=== PATIENT | male | born 1970 | race Caucasian/White ===

== ENCOUNTER 2024-10-28 13:18 | Inpatient (IN) | payer BC ==
[~2024-10-28] VITALS: Ht 190.5 cm; Wt 127.3 kg
[2024-10-28] VITALS (12 sets, daily range): BP systolic 143–168; BP diastolic 76–105; PULSE 64–87; RESP 15–19; TEMP 97.2–97.7; O2SAT 96–100
[2024-10-28] MEDS: HEPARIN DRIP INITAL BOLUS --- DO NOT GIVE/ORDER MC ONE (13:39)
[2024-10-28] MEDS: HEPARIN DRIP-CARDIAC**PHARMACIST-TO-DOSE IV ONE (13:39)
[2024-10-28 13:40] LABS: MEAN PLATELET VOLUME 7.8 FL (7.4-10.4); RED CELL DISTRIBUTION WIDTH 13.8 % (11.5-14.5)
--- NOTE | 2024-10-28 13:41 | Physician Documentation ---
History of Present Illness ~ Chief Complaint: Chest Pain Stated Complaint: NSTEMI Time Seen by MD: 13:24 Source: patient, EMS, EMS notes reviewed, old records Mode of Arrival: EMS Exam Limitations: no limitations HPI Chief Complaint: Chest pain Caveat: None Independent Historians: Paramedics History of Present Illness: Patient is a 54-year-old man complaining of chest pain that has been intermittent for a week and a half and then became severe last evening around 11:00 p.m.. Patient went to [facility] emergency department earlier this morning and was found to have elevated troponin and severe hypertension. He is placed on nitro drip, heparin drip and given aspirin. Patient continues to have chest pain five to 7/10 over the left side of the chest. No alleviating or exacerbating factors. Patient was transferred here from [facility] emergency department via paramedics. Review of systems: All systems were reviewed and are negative except for what is indicated in the history of present illness. Past Medical History: HLD Past Surgical History: None Social History: No tobacco use, no alcohol use, no drug use Medications: Reviewed as documented Nursing Notes Allergies: Reviewed as documented in Nursing Notes Medication Reconciliation Allergies: Coded Allergies: No Known Allergies (Unverified , 10/28/24) Review of Systems All Other Systems at this time: Reviewed and Negative ROS Patient denies any other acute symptoms other than above. All other systems are negative Physical Exam Vital Signs: RN Vital Signs have been reviewed: Yes, Heart Rate: 66, Respiratory Rate: 13, BP: 147/94, Pulse Oximetry: 99, Weight: 127.270 Oxygen Flow Rate: 0 Pulse Oximetry Reflects: adequate oxygenation Physical Exam General Appearance: Mild distress HEENT: Normal OP, moist oral mucosa, PERRL, EOMI Neck: supple, normal ROM, trachea midline Pulmonary: No respiratory distress, CTA, BS equal Cardiac: RRR, no murmur, rub or gallop, GI: nondistended, soft, nontender, normal bowel sounds, no guarding, no rebound Extremities: normal ROM, no swelling, non-tender Skin: intact, dry, warm, no rashes Neuro: AAOx3, speech is clear, no focal motor weakness Psych: normal affect, good eye contact, no apparent hallucination, normal speech Progress Results/Orders Results/Orders Orders - RIAZ HALL MD Chest,Single View (10/28/24 13:27) Saline Lock (10/28/24 13:27) Monitor (10/28/24 13:) Oxygen (10/28/24 13:) Hs Troponin I W Calculations (10/28/24 15:27) Hs Troponin I W Calculations (10/28/24 16:27) Heparin 25,000 Unit/250ml Bag (Heparin 2 (10/28/24 13:35) Heparin 10,000 Unit/Ml 1ml (Heparin 10,0 (10/28/24:35) Nitroglycerin-Tridil 50mg/D5w (Tridil (N (10/28/24 13:35) Electrocardiogram (10/28/24 14:12) Page Hospitalist (10/28/24 14:13) Fill Out Med Reconciliation (10/28/24 14:13) Electrocardiogram (10/28/24 14:14) Completed Orders - RIAZ HALL MD Cbc/Diff (10/28/24:) MG (10/28/24:) Electrocardiogram (10/28/24 13:27) PBNP (10/28/24 13:27) Chest,Single View (10/28/24:) BMP (10/28/24 13:27) Hs Troponin I W Calculations (10/28/24:) Heparin Drip Acs*Rph-To-Dose* (Heparin D (10/28/24 13:30) No Initial Heparin Drip Bolus (No Initia (10/28/24 13:35) Cardiac Ptt (10/28/24 14:13) Fentanyl/Pf (Fentanyl 0.05 Mg/Ml Syringe (10/28/24 14:15) Pt Inr (10/28/24 14:13) Message To Nursing (10/28/24 14:20) Medications Received in ER Medications (Trade) Dose Ordered Sig/Gulshan Route PRN Reason Start Time Stop Time Status Last Admin Dose Admin (Heparin Drip - Cardiac - Pharmacist To Dose) 1 ea ONCE ONCE IV 10/28/24 13:30 10/28/24 13:31 DC 10/28/24 13:39 1 EA Heparin Sodium/ Dextrose 250 ml @ 10 mls/hr Q25H PRN IV TO MAINTAIN PTT WITHIN RANGE 10/28/24 13:35 10/28/24 13:58 10 MLS/HR Nitroglycerin/ Dextrose 250 ml @ 1.5 mls/hr Q48H PRN IV TO MAINTAIN MEAN MAP OF 65 10/28/24 13:35 10/28/24 14:07 12 MLS/HR Vital Signs 10/28/24 10/28/24 10/28/24 13:23 13:47 14:07 Pulse 66 Resp 13 13 B/P (MAP) 147/94 166/110 Pulse Ox 99 O2 Flow Rate 0 Laboratory Tests Test 10/28/24 13:30 White Blood Count 11.9 H Red Blood Count 5.07 Hemoglobin 16.2 Hematocrit 47.9 Mean Corpuscular Volume 94.4 Mean Corpuscular Hemoglobin 31.9 H Mean Corpuscular Hemoglobin Concent 33.8 Red Cell Distribution Width 13.8 Platelet Count 194 Mean Platelet Volume 7.8 Neutrophils (%) (Auto) 65.6 Lymphocytes (%) (Auto) 26.1 Monocytes (%) (Auto) 6.0 Eosinophils (%) (Auto) 1.7 Basophils (%) (Auto) 0.6 Neutrophils # (Auto) 7.8 H Lymphocytes # (Auto) 3.1 Monocytes # (Auto) 0.7 Eosinophils # (Auto) 0.2 Basophils # (Auto) 0.1 CBC Comment Prothrombin Time 10.4 INR International Normalized Ratio 1.0 APTT (Heparin Protocol) 31 L Coagulation Comments Sodium Level 138 Potassium Level 4.3 Chloride Level 105 Carbon Dioxide Level 24.1 Anion Gap 9 Blood Urea Nitrogen 12 Creatinine 0.99 Estimated GFR/1.73 m2 79 BUN/Creatinine Ratio 12.1 Glucose Level 118 H Calcium Level 9.2 Magnesium Level 2.1 Troponin I High Sensitivity 3755 *H Pro-B-Type Natriuretic Peptide 1644 H Albumin 3.9 Chemistry Comments Medical Decision Making Findings Differential diagnosis includes but is not limited to: Acute coronary syndrome, pulmonary embolus, myocarditis, pericarditis EKG independent interpretation: Performed at 1:30 p.m.. Normal sinus rhythm, heart rate 69, leftward axis, subtle ST-depression in leads two, AVF and V4 through V6 EKG independent interpretation: Performed at 2:16 p.m.. Normal sinus rhythm, heart rate 62, leftward axis Q-wave in three and V1. Very subtle minimal ST- depression in two, AVF and V4 through V6 Chest x-ray, single view, indication: Chest pain Independent interpretation: Mild cardiomegaly, mild pulmonary vascular congestion, normal mediastinum. Laboratory data independent interpretation: CBC: Mild leukocytosis of 11.9, otherwise unremarkable CMP: Unremarkable, serum glucose 118 Pro BNP: 1644 1st troponin: 3755 2nd troponin: Urinalysis: Emergency department course/medical decision-making: Presents with ongoing chest pain and elevated troponins. Patient's 1st troponin earlier this morning at [facility] child was 445 and increased to 1684. Now the patient's troponin is higher than that at 3755. Patient is given fentanyl for his chest pain. Patient has continued heparin drip and nitro drip. Vital signs have been stable. Recommend patient be admitted and a heart catheterization. We will discuss with Dr. Quintana. Test results and treatment plan reviewed with the patient. 2:12 p.m.: Troponin result received and is continuing to increase. Patient is having ongoing chest pain. Dr. Quintana on-call Cardiology will be called immediately. Consultation/communications: 2:18 p.m.: Case discussed with claire Quintana's nurse in the general laborer. This information will be relayed to Dr. Quintana and he will evaluate the patient is soon as he is done with the current patient in the general laborer. 2:40 p.m.: Case discussed with the resident hospitalist. She will evaluate the patient for admission. Departure Time of Disposition: 14:13 Disposition: ADMITTED INPATIENT Admitted to Inpatient Unit: to hospitalist Admission Level of Care: PCU with Tele Impression: Primary Impression: NSTEMI (non-ST elevated myocardial infarction) Additional Impression: Hypertensive emergency Condition: Guarded Referrals: NO PRIMARY CARE PROVIDER (PCP) Education Educated: Patient Educated regarding: diagnosis, treatment Critical Care Note Total Time (mins): 45 Critical Care Note Critical conditions addressed for impending deterioration include: airway/respi ratory, cardiovascular, Associated risk factors involving deterioration include: hypertension, The very real possibility of a deterioration of this patient's condition required the highest level of my preparedness for sudden, emergent intervention. I provided critical care services, which included medication orders, frequent reevaluations of the patient's condition and response to treatment, ordering and reviewing test results, and discussing the case with necessary consultants. Critical care time was exclusive of necessary procedure time. The critical care time associated with the care of the patient was 45 minutes. Signature Scribe Signature: No scribe Attestation: No scribe RIAZ HALL MD Oct 28, 2024 13:41
[2024-10-28] MEDS: heparin 25,000 UNIT/250ml bag 250 ML IV PRN (13:58)
--- NOTE | 2024-10-28 14:02 | RADIOLOGY REPORT ---
EXAM: DI CHEST,SINGLE VIEW Indication: CP Technique: Single frontal view of the chest was obtained Comparison: None FINDINGS: Lines and Tubes: None Lungs: No focal consolidation. Pleura: No effusion. No pneumothorax. Cardiomediastinal contours: Unremarkable Bones: No acute osseous abnormality. IMPRESSION: No acute cardiopulmonary disease.
[2024-10-28] MEDS: nitroGLYCERIN-Tridil 50MG/D5W 250 ML IV PRN ×2 (14:07→23:54)
[2024-10-28 14:08] LABS: CREATININE 0.99 MG/DL (0.60-1.10); PRO BRAIN NATRIURETIC PEPTIDE 1644 PG/ML (0-125); TOTAL CARBON DIOXIDE 24.1 MMOL/L (24-32); eCRCL 103 ML/MIN; eGFR 79 ML/MIN
--- NOTE | 2024-10-28 14:18 | ELECTROCARDIOGRAPH REPORT ---
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
[2024-10-28 14:32] LABS: INR 1.0 INR
[2024-10-28] MEDS ORDERED: mag hydrox/Alum hydrox/simeth 30ml oral suspension PO PRN (14:40)
[2024-10-28] MEDS ORDERED: magnesium sulf-water 4G/100mL 100 ML IV PRN (14:40)
[2024-10-28] MEDS ORDERED: magnesium Cl slow-release 64mg tablet PO PRN (14:40)
[2024-10-28] MEDS ORDERED: potassium Cl 40MEQ/1/2NS 520ml 520 ML IV PRN (14:40)
[2024-10-28] MEDS ORDERED: potassium Cl 20 mEq SR tablet PO PRN ×2 (14:40)
[2024-10-28] MEDS ORDERED: magnesium sulf-water 2g/50mL 50 ML IV PRN (14:40)
[2024-10-28] MEDS ORDERED: ondansetron 4mg rapidly disintigrating tab PO PRN (14:40)
[2024-10-28] MEDS ORDERED: magnesium hydroxide 30ml (MOM) UD suspension PO PRN (14:40)
--- NOTE | 2024-10-28 14:51 | CONSULTATION REPORT - RESIDENT ---
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 He endorses chest pain, more on the left side of the chest, stabbing and throbbing type of pain for the past 1 and half week , intermittent, on and off for the past 1 and half week and then it became very severe 9 to 10 around 11:00 p.m. on yesterday but 5/10 of, no aggravating, relieving factors and associated with shortness of breathe but not with nausea, vomiting, diaphoresis. Patient went to [facility] emergency department earlier this morning and was found to have elevated troponin in in 455 at [facility] [employer] and severe hypertension. He is placed on nitro drip, heparin drip and given aspirin. Patient continues to have chest pain five to 7/10 over the left side of the chest. Endorses shortness of breath, aggravated with exertion and associated with orthopnea but not with PND. He denied palpitations, wheeze, swelling of legs, deviation of angle of mouth, slurring of speech, seizures, weakness of limbs, abdominal pain, abdominal distention, hematemesis, melena, bleeding per rectum, jaundice. 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 He never had the echocardiogram, stress test. We were consulted for NSTEMI. Allergies: Coded Allergies: No Known Allergies (Unverified , 10/28/24) Past Medical History Past Medical History Hyperlipidemia Obesity Questionable obstructive sleep apnea Lymphoma status post surgical reduction and chemotherapy in 2000 Past Surgical History Surgical History Comment Appendectomy in 2021 Tumor resection for lymphoma in 2000 ORIF bilateral feet due to fractures sustained after and a heavy object fell on the feet at work. Past Social History Social History Comment He was a smoker and he quit smoking 5 years back. He used to smoke like of 1 pack a day for 20 years He occasionally drinks beer He do occasionally marijuana but denied methamphetamine Living in home with spouse. Family history Mother of cirrhosis at the age of 64 Father of lung cancer diagnosed at the age of 59 Brother in a bike accident ROS ROS Reviewed in full and negative except positive pertinent as in HPI Exam Vitals: Vital Signs Date Time Temp Pulse Resp B/P (MAP) Pulse Ox O2 Delivery O2 Flow Rate FiO2 10/28/24 14:07 166/110 10/28/24 13:47 13 10/28/24 13:23 66 99 0 General: General Appearance: , awake, oriented to time place person. Obese and in Mild distress HEENT: Normal OP, moist oral mucosa, PERRL, EOMI Neck: supple, normal ROM, trachea midline. No JVD, no carotid upstroke Pulmonary: No respiratory distress, bilateral normal vesicular breath sounds are heard. No crepitations, wheeze Cardiac: RRR, no murmur, rub or gallop, GI: nondistended, soft, nontender, normal bowel sounds, no guarding, no rebound tenderness. Porter bowel sounds Extremities: normal ROM, no swelling, non-tender Skin: intact, dry, warm, no rashes Neuro: AAOx3, speech is clear, no focal motor weakness Psych: normal affect, good eye contact, no apparent hallucination, normal speech Diagnostic Data Last Recorded Lab Results: 10/28/24 1330 10/28/24 1330 Diagnostic Data: Laboratory Tests Test 10/28/24 13:30 Prothrombin Time 10.4 SECONDS (9.0-12.0) INR International Normalized Ratio 1.0 INR APTT (Heparin Protocol) 31 SECONDS (45-60) L Coagulation Comments Additional Plan Typical angina Coronary artery disease Acute coronary syndrome NSTEMI- Anteroseptal and possible Inferior wall ischemia EKG showed T-wave inversions in V1 V2 V3, lead 3 Significant delta change in troponins, from 455->1684>3755 ProBNP is in 1644 Chest x-ray showing cardiomegaly Recommended for echocardiogram, lipid panel, A1c Continue heparin ACS protocol drip and nitro drip Start aspirin 81 mg, atorvastatin 80 mg Patient may benefit from cardiac catheterization. Hyperlipidemia Recommended lipid panel and follow up with the LDL Start atorvastatin 80 mg p.o. daily and check LDL with a target of less than 55 Obesity Obstructive sleep apnea May need the workup for TATUM with sleep Medicine. Out patient follow up Rosas BROOKS resident, PGY 2 Cardiology Patient seen and examined by Dr. Iman TINEO with resident physician. Subsequently underwent coronary angiography found to have a totally occluded LAD which was successfully recanalized and stented with 3/38 mm stent post dilated to 3.5 mm. Diagonal ostium was angioplastied. Recommend continued aspirin, Brilinta, beta blockers and high-dose statins and Chin or Arb. Sepsis Screening Reassessment Date: Oct 29, 2024 Date of Service: Oct 28, 2024 Billing Provider: MINERVA AVILEZ MD, VENKATESH, RES Oct 28, 2024 14:51 MINERVA AVILEZ MD Oct 29, 2024 20:08
--- NOTE | 2024-10-28 14:57 | ELECTROCARDIOGRAPH REPORT ---
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
[2024-10-28] MEDS: MESSAGE TO NURSING IV ONE ×2 (15:01→23:13)
[2024-10-28] MEDS: fentaNYL/PF 50MCG/1 ML 2ML syringe IV ONE (15:02)
[2024-10-28] MEDS ORDERED: LIDOcaine 1% 30ml preserv. free vial ONE (15:24)
[2024-10-28] MEDS ORDERED: verapamil 2.5 mg/ml inj IV ONE (15:24)
--- NOTE | 2024-10-28 15:24 | HISTORY AND PHYSICAL-Residence ---
History & Physical Providers to Resident Creating Document: SLOAN PEREZ, GREGORIA ~ History of Present Illness Primary Medical Doctor: Edward from [facility] Reason for Admit\Complaint: CHEST PAIN History of Present Illness A 54-year-old male with past medical history of hyperlipidemia and lymphoma was transferred from [place] emergency department via paramedics in view of chest pain. Patient had chest pain, intermittent, since 10 days. The chest pain occurred at rest, nonradiating, with an intensity of 5/10 and lasted a few minutes. The chest pain became severe last night around 11:00 p.m. which woke him up from his sleep. He rated the pain as continuous, 8/10, radiating to his left elbow, with no relieving factors. No complaints of palpitation, breathlessness, dizziness, syncope, sweating, leg swelling. Allergies: Coded Allergies: No Known Allergies (Unverified , 10/28/24) Past Medical History Past Medical History Hyperlipidemia Lymphoma status post tumor resection and chemo in 2000 Past Surgical History Surgical History Comment Appendectomy in 2021 Tumor resection for lymphoma in 2000 ORIF bilateral feet due to fractures sustained after and a heavy object fell on the feet at work. Past Social History Social History Comment Mother of cirrhosis at the age of 64 Father of lung cancer diagnosed at the age of 59 Brother in a bike accident Smoking: Quit greater than 1 year (Used to smoke one pack a day for 25 years. 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 Previously worked in a [employer]) Domestic Violence: Neg ROS All Other Systems: Reviewed and Negative Constitutional: Reports: no symptoms reported Eyes: Reports: no symptoms reported ENT: Reports: no symptoms reported Respiratory: Reports: no symptoms reported Cardiovascular: Reports: chest pain, left arm pain Genitourinary: Reports: no symptoms reported Male Genitalia: Reports: no symptoms reported Neurological: Reports: no symptoms reported Musculoskeletal: Reports: no symptoms reported Integumentary: Reports: no symptoms reported Allergic/Immunologic: Reports: no symptoms reported Hematologic/Lymphatic: Reports: no symptoms reported Endocrine: Reports: no symptoms reported Psychiatric: Reports: no symptoms reported Exam Vitals: Vital Signs Date Time Temp Pulse Resp B/P (MAP) Pulse Ox O2 Delivery O2 Flow Rate FiO2 10/28/24 15:03 74 15 152/97 (115) 98 0 General: General: Awake, confused, not agitated, in acute distress, following commands. Eye opening -spontaneous, verbal response-confused, motor response-obeys commands. GCS - 15/15 HEENT: Conjunctive are pink, sclerae clear, no icterus, pupil is equal in both sides, reactive to light, no ear discharge, no pharyngeal erythema or an edema. Neck: Supple, no JVD, no lymphadenopathy and thyromegaly. Chest: Equal air entry on both lungs, no additional sounds no rhonchi no wheezing at the moment. Cardiovascular: S1-S2 regular sinus rhythm and, regular rate, no gallops, no rubs, no murmurs Abdomen: No visible peristalsis, Bowel sounds present on auscultation, soft, nontender, no guarding, no rigidity Extremities: Normal, no swelling, no visible deformities. Peripheral pulses felt. Essential tremors in right hand. Central Nervous System: No motor or sensory deficits. No cranial nerve abnormalities. Musculoskeletal: No joint swelling, deformities, inflammations, and no scoliosis and back tenderness Skin: Warm and dry. Diagnostic Data Last Recorded Lab Results: 10/28/24 1330 10/28/24 1330 Diagnostic Data: Laboratory Tests Test 10/28/24 13:30 Prothrombin Time 10.4 SECONDS (9.0-12.0) INR International Normalized Ratio 1.0 INR APTT (Heparin Protocol) 31 SECONDS (45-60) L Coagulation Comments Counseling Services Smoking & Tobacco Cessation: 3-10 Minutes Advance Care Planning Advanced Care plannin - 30 Minutes (Full code) Additional Plan Assessment: Of 54-year-old man with past medical history of hyper lipidemia was transferred from [place] to [facility] in view of chest pain Plan: ACS, NSTEMI-anteroseptal and possible inferior wall ischemia 10/28/2024: Ongoing active chest pain, rates 6/10, not relieved with nitroglycerin drip or fentanyl given in [place] Pulse 74, regular in rhythm. Blood pressure 152/97. Maintaining oxygen saturation in room air EKG Normal sinus rhythm, heart rate 62, leftward axis Q-wave in 3 and V1. Very subtle minimal ST-depression in two, AVF and V4 through V6 Chest x-ray: No acute cardiopulmonary disease. Pro BNP: 1644 1st troponin: 3755, troponin level in [place] was 445 Mild leukocytosis- 11.9, possibly reactive Cardiology consulted, recommended cardiac catheterization. NPO until further notice. Hyperlipidemia 10/28/2024: Awaiting lipid levels Code status: Full code DVT prophylaxis: Heparin Analgesia/sedation: Morphine Line/tube: PIV GI prophylaxis: none Nutrition: NPO PT: ordered Prognosis: Guarded Disposition: Continue medical management, possible cardiac cath Sloan Perze PGY1, Internal Medicine. Date of Service: Oct 28, 2024 Billing Provider: FARHEEN GONSALEZ MD Common Visit Codes: 76476-BMKOLIQ INP/OBS CARE (HIGH) Secondary Visit Codes: 19259-[id number] CARE PLAN 30 MINUTES SLOAN PEREZ, GREGORIA Oct 28, 2024 15:24 FARHEEN GONSALEZ MD Oct 30, 2024 06:17
[2024-10-28] MEDS ORDERED: fentaNYL/PF 50MCG/1 ML 2ML syringe ONE (15:25)
[2024-10-28] MEDS ORDERED: heparin 1,000unit/ml 10ml vial 10 ML ONE (15:25)
[2024-10-28] MEDS ORDERED: iohexol 350 MG/ML 50ML vial IV ONE (15:25)
[2024-10-28] MEDS ORDERED: midazolam 1 mg/ML 2ml injection ONE (15:25)
--- NOTE | 2024-10-28 15:34 | ELECTROCARDIOGRAPH REPORT ---
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
[2024-10-28] MEDS ORDERED: nitroGLYCERIN 500mcg/5mL D5W 5 ML IV ONE (15:36)
[2024-10-28] MEDS ORDERED: atropine 0.1mg/ml 10ml syringe ONE (16:27)
[2024-10-28] MEDS ORDERED: nitroGLYCERIN-Tridil 50MG/D5W 250 ML IV PRN (18:14)
[2024-10-28] MEDS ORDERED: HYDROcodone/acetaminophen 5mg/325mg tablet PO PRN (18:20)
[2024-10-28] MEDS: ondansetron/PF 4mg/2ml inj IV PRN (19:50)
[2024-10-28] MEDS: HYDROcodone/acetaminophen 10/325mg tab PO PRN (19:53)
[2024-10-28] MEDS: K and/or MAG REPLACEMENT MC SCH (20:00)
[2024-10-28] MEDS: docusate sod 100mg capsule PO SCH (22:28)
[2024-10-29] VITALS (22 sets, daily range): BP systolic 117–165; BP diastolic 77–111; PULSE 66–85; RESP 10–19; TEMP 97.3–98.1; O2SAT 94–99
[2024-10-29 03:57] LABS: MEAN PLATELET VOLUME 8.0 FL (7.4-10.4); RED CELL DISTRIBUTION WIDTH 14.2 % (11.5-14.5)
[2024-10-29] MEDS: heparin 10,000 units/1 ML INJ IV PRN (04:44)
[2024-10-29] MEDS: MESSAGE TO NURSING IV ONE ×3 (04:56→20:19)
--- NOTE | 2024-10-29 06:24 | ELECTROCARDIOGRAPH REPORT ---
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 MYRIAM Quintana Measurements Intervals [place] Rate: 64 P: 68 GA: 188 QRS: -20 QRSD: 94 T: 27 QT: 388 QTc: 401 Interpretive Statements Sinus rhythm Borderline left axis deviation Probable anterior infarct, age indeterminate Electronically Signed On 10-30-2024 20:18:[address] MYRIAM Quintana Please click the below link to view image of tracing.
[2024-10-29] MEDS ORDERED: hydrALAZINE 20mg/ml inj. IV PRN (07:35)
[2024-10-29] MEDS ORDERED: metoprolol succinate 25mg (24-HOUR) SR. Tablet PO SCH (08:00)
[2024-10-29] MEDS: metoprolol succinate 25mg (24-HOUR) SR. Tablet PO SCH (08:14)
[2024-10-29 08:17] LABS: CHOL/HDL RATIO 4.8 (0.00-4.99); CREATININE 1.10 MG/DL (0.60-1.10); LDL CHOLESTEROL 152 MG/DL (50-100); TOTAL CARBON DIOXIDE 21.9 MMOL/L (24-32); eCRCL 93 ML/MIN; eGFR 70 ML/MIN
--- NOTE | 2024-10-29 08:46 | ELECTROCARDIOGRAPH REPORT ---
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 MYRIAM Quintana Measurements Intervals [place] Rate: 65 P: 56 CT: 180 QRS: -13 QRSD: 96 T: 0 QT: 480 QTc: 500 Interpretive Statements Sinus rhythm Probable anteroseptal infarct, recent Electronically Signed On 10-30-2024 20:18:[address] MYRIAM Quintana Please click the below link to view image of tracing.
[2024-10-29] MEDS: LIDOcaine 1% (10mg/ml) 2ml vial SQ ONE ×2 (09:45→09:47)
[2024-10-29] MEDS: LIDOcaine 1% (10mg/ml) 2ml vial ONE (09:46)
--- NOTE | 2024-10-29 11:58 | PROGRESS NOTE- Residence ---
Progress Note - Resident Providers to CC Resident Creating Document: ROSAS HARRISON RES ~ Antibiotic Timeout Antibiotic Ordered?: No Subjective Seen and examined the patient at bedside. Blood pressure is in 160s and patient still has residual chest pain mild in nature, 1- 2/10. No other new symptoms Objective Vital Signs Date Time Temp Pulse Resp B/P (MAP) Pulse Ox O2 Delivery O2 Flow Rate FiO2 10/29/24 11:06 16 10/29/24 08:15 64 10/29/24 08:00 Room Air 0.0 10/29/24 06:00 97.3 126/90 (102) 94 Result Diagram: 10/29/24 0338 10/29/24 0338 General Appearance: , awake, oriented to time place person. Obese and in Mild distress HEENT: Normal OP, moist oral mucosa, PERRL, EOMI Neck: supple, normal ROM, trachea midline. No JVD, no carotid upstroke Pulmonary: No respiratory distress, bilateral normal vesicular breath sounds are heard. No crepitations, wheeze Cardiac: RRR, no murmur, rub or gallop, GI: nondistended, soft, nontender, normal bowel sounds, no guarding, no rebound tenderness. [place] bowel sounds Extremities: normal ROM, no swelling, non-tender Skin: intact, dry, warm, no rashes Neuro: AAOx3, speech is clear, no focal motor weakness Psych: normal affect, good eye contact, no apparent hallucination, normal speech Coagulation Studies Laboratory Tests Test 10/28/24 13:30 10/28/24 17:22 10/29/24 11:40 Prothrombin Time 10.4 SECONDS (9.0-12.0) INR International Normalized Ratio 1.0 INR Activated Clotting Time 182 SEC (101-148) H Coagulation Comments Advance Care Planning Advanced Care plannin - 30 Minutes Plan Plan Typical angina Coronary artery disease Acute coronary syndrome NSTEMI- Anteroseptal and possible Inferior wall ischemia Status post PTCA with stenting to LAD Hypertension EKG showed T-wave inversions in V1 V2 V3, lead 3 Significant delta change in troponins, from 455->1684>3755 ProBNP is in 1644 Chest x-ray showing cardiomegaly Recommended for echocardiogram, lipid panel, A1c Continue heparin ACS protocol drip and nitro drip Continue aspirin 81 mg, Brilinta 90 mg p.o. b.i.d., atorvastatin 80 mg, ezetimibe 10 mg Continue hydralazine 15 mg q.4h IV p.r.n. if SBP is more than 150 Continue losartan 50 mg p.o. b.i.d. and metoprolol 50 mg p.o. b.i.d. Reviewed the EKG- no new changes of STEMI Strict blood pressure control with a target of less than 130 and LDL of less than 55 A1c is 5.6 Hyperlipidemia LDL is 152 Start atorvastatin 80 mg p.o. daily and ezetimibe 10 mg Obesity Obstructive sleep apnea May need the workup for TATUM with sleep Medicine. Out patient follow up Rosas BROOKS resident, PGY 2 Cardiology Patient seen and examined this morning by Dr. KNIGHT and resident physician. Overall patient doing well. Chest pain has resolved. Patient does have evolving precordial EKG changes. Continue to monitor his troponin. Control his blood pressure. Continue medication Date of Service: Oct 29, 2024 Billing Provider: MINERVA AIVLEZ MD, VENKATESH, GREGORIA Oct 29, 2024 11:58 MINERVA AVILEZ MD Oct 29, 2024 20:13
--- NOTE | 2024-10-29 19:12 | CARDIOLOGY REPORT ---
APPROVED REPORT EXAM: Comprehensive 2D, Doppler, and color-flow Echocardiogram. Patient Location: ER RM 7 Blood Pressure: 151/95 mmHg Heart Rate: 63 bpm Indications NSTEMI Troponin: 3755 ProBNP: 1644 Hypertension NO FIELD SERVICES MANAGER: BV. Lilian MD ( Consulted) NO Previous ECHO 2D Dimensions LA Diam3.4 cm IVSd 1.2 (0.7-1.1cm) LVDd 6.0 cm PWd 1.3 (0.7-1.1cm) IVSs 1.7 (0.8-1.2cm) LVDs 3.6 (2.5-4.0cm) PWs 1.8 (0.8-1.2cm) LVOT Diameter 2.38 (1.8-2.4cm) LVEF(%) 70.6 (>50%) Ao Asc Diam.3.75 cm IVC 23.82 mmFS (%) 40.6 % SV 113.0 ml CO 7.0 L/min M-Mode Dimensions Aortic Root 3.89 (2.2-3.7cm) Aortic Cusp Exc 2.32 (1.5-2.0cm) MV EPSS 1.4 (<0.5cm) Aortic Valve AoV Peak Darren. 134.7 cm/s AoV VTI 27.2 cm AO Peak GR. 7.3 mmHg AO Mean GR. 4 mmHg LVOT VTI 24.83 cm LVOT Peak Darren. 115.1 cm/s MILENA(VTI)/BSA 4.08 cm2/m2 MILENA (VTI) 4.08 cm2 AI P 1/2 Time 456 ms Mitral Valve MV E Velocity 96.3 cm/s MV Peak Gr. 3 mmHg MV DECEL TIME 184 ms MV A Velocity 93.1 cm/s MV PHT 92 ms E/A Ratio 1.0 MVA (PHT) 2.39 cm2 MV VMax88.7 cm/s TDI Lateral E' P. V8.72 cm/s E/Lateral E' 11.0 Pulmonary Valve PAEDP12.80 mmHg Tricuspid Valve TR P. Velocity 126 cm/s RAP ESTIMATE 10 mmHg TR Peak Gr. 6 mmHg RVSP 16 mmHg LEFT VENTRICLE Left ventricle is mildly dilated with mild concentric hypertrophy. Overall systolic function is rachel l. LVEF is 65%. RIGHT VENTRICLE RV is normal size and function. ATRIA The left atrium size is normal. AORTIC VALVE Trileaflet AV appears mildly sclerotic without stenosis. Mild insufficiency. MITRAL VALVE Mild mitral annular calcification without stenosis. Tracer regurgitation. TRICUSPID VALVE The tricuspid valve is normal in structure with trace regurgitation. PULMONIC VALVE The pulmonary valve is normal in structure with physiologic insufficiency. GREAT VESSELS The aortic root is normal in size. The ascending aorta is normal in size. IVC is dilated and collapse s greater than 50% with inspiration. PERICARDIUM Normal pericardium. No effusion. Other Information Study Quality: Fair due to body habitus
--- NOTE | 2024-10-29 20:15 | PROGRESS NOTE- Residence ---
Progress Note - Resident Providers to CC Resident Creating Document: SLOAN PEREZ RES ~ Antibiotic Timeout Antibiotic Ordered?: No Subjective Patient examined bedside. Reports decrease in chest pain. No acute symptoms overnight. Objective Vital Signs Date Time Temp Pulse Resp B/P (MAP) Pulse Ox O2 Delivery O2 Flow Rate FiO2 10/29/24 18:00 71 16 136/87 (103) 10/29/24 12:00 Room Air 10/29/24 08:00 0.0 10/29/24 06:00 97.3 94 Result Diagram: 10/29/248 10/29/24337 General: Awake, confused, not agitated, in acute distress, following commands. Eye opening -spontaneous, verbal response-confused, motor response-obeys commands. GCS - 15/15 HEENT: Conjunctive are pink, sclerae clear, no icterus, pupil is equal in both sides, reactive to light, no ear discharge, no pharyngeal erythema or an edema. Neck: Supple, no JVD, no lymphadenopathy and thyromegaly. Chest: Equal air entry on both lungs, no additional sounds no rhonchi no wheezing at the moment. Cardiovascular: S1-S2 regular sinus rhythm and, regular rate, no gallops, no rubs, no murmurs Abdomen: No visible peristalsis, Bowel sounds present on auscultation, soft, nontender, no guarding, no rigidity Extremities: Normal, no swelling, no visible deformities. Peripheral pulses felt. Essential tremors in right hand. Central Nervous System: No motor or sensory deficits. No cranial nerve abnormalities. Musculoskeletal: No joint swelling, deformities, inflammations, and no scoliosis and back tenderness Skin: Warm and dry. Coagulation Studies Laboratory Tests Test 10/28/24 13:30 10/28/24 17:22 10/29/24 18:46 Prothrombin Time 10.4 SECONDS (9.0-12.0) INR International Normalized Ratio 1.0 INR Activated Clotting Time 182 SEC (101-148) H APTT (Heparin Protocol) 51 SECONDS (45-60) Coagulation Comments Assessment Assessment A 54-year-old male with past medical history of hyperlipidemia and lymphoma was transferred from [place] emergency department via paramedics in view of chest pain. Plan Plan Plan: ACS, NSTEMI-anteroseptal and possible inferior wall ischemia 10/28/2024: Ongoing active chest pain, rates 6/10, not relieved with nitroglycerin drip or fentanyl given in [place] Pulse 74, regular in rhythm. Blood pressure 152/97. Maintaining oxygen saturation in room air EKG Normal sinus rhythm, heart rate 62, leftward axis Q-wave in 3 and V1. Very subtle minimal ST-depression in two, AVF and V4 through V6 Chest x-ray: No acute cardiopulmonary disease. Pro BNP: 1644 1st troponin: 3755, troponin level in [place] was 445 Mild leukocytosis- 11.9, possibly reactive Cardiology consulted, recommended cardiac catheterization. NPO until further notice. 10/29/2024: [place] [address], WBC 12.2 But the patient does not report of any chest discomfort Systolic Blood pressure throughout the night was in 160s. Cardiology was consulted, medication was changed to Metoprolol 50 mg b.i.d., losartan 50 mg b.i.d. Hydralazine 50 mg IV p.r.n. every 4 hours if systolic blood pressure is more than 150 Close monitoring of blood pressure, pulse rate Hyperlipidemia 10/28/2024: Awaiting lipid levels Code status: Full code DVT prophylaxis: Heparin Analgesia/sedation: Morphine Line/tube: PIV GI prophylaxis: none Nutrition: NPO PT: ordered Prognosis: Guarded Disposition: Continue medical management Sloan Perez PGY1, Internal Medicine. Date of Service: Oct 29, 2024 Billing Provider: FARHEEN GONSALEZ MD Common Visit Codes: [id number]-[id number] INP/OBS CARE(HIGH) SLOAN PEREZ, RES Oct 29, 2024 20:14 FARHEEN GONSALEZ MD Oct 30, 2024 06:18
[2024-10-30] VITALS (8 sets, daily range): BP systolic 114–149; BP diastolic 62–96; PULSE 62–80; RESP 16–21; TEMP 97.2–98.3; O2SAT 97–98
[2024-10-30] MEDS: MESSAGE TO NURSING IV ONE ×2 (03:50→09:50)
[2024-10-30 07:05] LABS: MEAN PLATELET VOLUME 8.4 FL (7.4-10.4); RED CELL DISTRIBUTION WIDTH 14.2 % (11.5-14.5)
[2024-10-30 07:27] LABS: CREATININE 0.98 MG/DL (0.60-1.10); TOTAL CARBON DIOXIDE 25.1 MMOL/L (24-32); eCRCL 104 ML/MIN; eGFR 80 ML/MIN
--- NOTE | 2024-10-30 08:57 | ELECTROCARDIOGRAPH REPORT ---
[facility] Test Date: 2024-10-30 Test Time: 08:56:32 Pat Name: SHANNAN JOHNSON Department: [facility] 3S Patient ID: [id number] Room: [place] [address] A Gender: M Change Management: WALTER : 1970 Requested By: MINERVA QUINTANA Order Number: [id number] Reading MD: Dr. MYRIAM Quintana Measurements Intervals [place] Rate: 74 P: 39 NH: 190 QRS: -36 QRSD: 101 T: 173 QT: 463 QTc: 514 Interpretive Statements Sinus rhythm Inferior infarct, old Anteroseptal infarct, age indeterminate Prolonged QT interval Electronically Signed On 10-30-2024 20:21:[address] MYRIAM Quintana Please click the below link to view image of tracing.
[2024-10-30] MEDS: heparin 10,000 units/1 ML INJ IV PRN (09:42)
--- NOTE | 2024-10-30 12:55 | PROGRESS NOTE- Residence ---
Progress Note - Resident Providers to CC Resident Creating Document: SLOAN PEREZ RES ~ Antibiotic Timeout Antibiotic Ordered?: No Subjective Patient examined bedside. Reports no chest pain, palpitation, breathlessness, dizziness, leg swelling. No acute symptoms overnight. Objective Vital Signs Date Time Temp Pulse Resp B/P (MAP) Pulse Ox O2 Delivery O2 Flow Rate FiO2 10/30/24 11:19 98.3 79 16 140/62 (88) 98 10/30/24 08:59 Room Air 0.0 Result Diagram: 10/30/24 0609 10/30/24 06 General: Awake, not confused, not agitated, not in acute distress, following commands. Eye opening -spontaneous, verbal response-confused, motor response-obeys commands. GCS - 15/15 HEENT: Conjunctive are pink, sclerae clear, no icterus, pupil is equal in both sides, reactive to light, no ear discharge, no pharyngeal erythema or an edema. Neck: Supple, no JVD, no lymphadenopathy and thyromegaly. Chest: Equal air entry on both lungs, no additional sounds no rhonchi no wheezing at the moment. Cardiovascular: S1-S2 regular sinus rhythm and, regular rate, no gallops, no rubs, no murmurs Abdomen: No visible peristalsis, Bowel sounds present on auscultation, soft, nontender, no guarding, no rigidity Extremities: Normal, no swelling, no visible deformities. Peripheral pulses felt. Essential tremors in right hand. Central Nervous System: No motor or sensory deficits. No cranial nerve abnormalities. Musculoskeletal: No joint swelling, deformities, inflammations, and no scoliosis and back tenderness Skin: Warm and dry. Coagulation Studies Laboratory Tests Test 10/28/24 13:30 10/28/24 17:22 10/30/24 08:06 Prothrombin Time 10.4 SECONDS (9.0-12.0) INR International Normalized Ratio 1.0 INR Activated Clotting Time 182 SEC (101-148) H APTT (Heparin Protocol) 28 SECONDS (45-60) L Coagulation Comments Assessment Assessment A 54-year-old male with past medical history of hyperlipidemia and lymphoma was transferred from [place] emergency department via paramedics in view of chest pain. Plan Plan Plan: ACS, NSTEMI-anteroseptal and possible inferior wall ischemia JONY Score-3 (moderate risk) 10/28/2024: Ongoing active chest pain, rates 6/10, not relieved with nitroglycerin drip or fentanyl given in [place] Pulse 74, regular in rhythm. Blood pressure 152/97. Maintaining oxygen saturation in room air EKG Normal sinus rhythm, heart rate 62, leftward axis Q-wave in 3 and V1. Very subtle minimal ST-depression in two, AVF and V4 through V6 Chest x-ray: No acute cardiopulmonary disease. Pro BNP: 1644 1st troponin: 3755, troponin level in [place] was 445 Mild leukocytosis- 11.9, possibly reactive Cardiology consulted, recommended cardiac catheterization. NPO until further notice. 10/29/2024: [place] [address], WBC 12.2 But the patient does not report of any chest discomfort Systolic Blood pressure throughout the night was in 160s. Cardiology was consulted, medication was changed to Metoprolol 50 mg b.i.d., losartan 50 mg b.i.d. Hydralazine 50 mg IV p.r.n. every 4 hours if systolic blood pressure is more than 150 Close monitoring of blood pressure, pulse rate 10/30/2024: Troponin levels trending down to 8800 today, WBC 9.6, APTT 28 Vitals stable blood pressure 140/62, pulse rate 79 Patient does not report any chest pain or discomfort Hyperlipidemia 10/30/2024: Triglyceride 146, cholesterol 224, LDL 152, HDL 48 Continue Lipitor 80 mg p.o. Code status: Full code DVT prophylaxis: Heparin Analgesia/sedation: Morphine Line/tube: PIV GI prophylaxis: none Nutrition: NPO PT: ordered Prognosis: Guarded Disposition: Continue medical management Sloan Perez PGY1, Internal Medicine. Date of Service: Oct 30, 2024 Billing Provider: FARHEEN GONSALEZ MD,SLOAN, RES Oct 30, 2024 12:55
--- NOTE | 2024-10-30 14:24 | PROGRESS NOTE ---
Progress Note Cardiology Providers to CC ~ Subjective Subjective Patient seen and examined this afternoon before discharge. Overall he is doing well. No chest pain or shortness of breath Objective Result Diagram: 10/30/24 0609 10/30/24 0609 Objective General: Normal body habitus, no acute distress, HEENT: Sclerae clear, PERRL, gums without lesions or bleeding, oropharynx clear without erythema or exudate. Neck: Supple without enlargement of the thyroid, or lymphadenopathy, Chest: Normal size and shape, no tenderness, nonlabored breathing, Breath sounds clear to auscultation. Heart: Regular in rate and rhythm, S1 and S2 normal, no S3-S4 or murmurs. Abdomen: Soft, nontender, no organomegaly, bowel sounds present. Extremities: No edema cyanosis or clubbing. Coagulation Studies Laboratory Tests Test 10/28/24 13:30 10/28/24 17:22 10/30/24 08:06 Prothrombin Time 10.4 SECONDS (9.0-12.0) INR International Normalized Ratio 1.0 INR Activated Clotting Time 182 SEC (101-148) H APTT (Heparin Protocol) 28 SECONDS (45-60) L Coagulation Comments Problem\Assessment\Plan Additional Plan 1. 54-year-old male Acute coronary syndrome NSTEMI- Anteroseptal and possible Inferior wall ischemia Status post PTCA with stenting to LAD with 3/38 mm resolute paulo stent post dilated with 3.5 mm. Diagonal ostium was angioplastied. Recommend uninterrupted aspirin and Brilinta at least for one year. 2. hypertension hyperlipidemia: Keep blood pressure within normal limit and LDL less than 70 mg%. 3. Other comorbidities include. Obesity Obstructive sleep apnea May need the workup for TATUM with sleep Medicine. Out patient follow up Patient recommended to follow up with me in one month. PMD in 1-2 weeks. Counseled on diet weight loss and exercise program. MINERVA AVILEZ MD Oct 30, 2024 14:24
--- NOTE | 2024-10-30 15:43 | DISCHARGE SUMMARY-Residence ---
Discharge Summary Providers to CC Resident Creating Document: SLOAN WHELAN, GREGORIA ~ Discharge Summary Admission Diagnosis: NSTEMI Hospital Course DATE OF ADMISSION: 10/28/2024 DATE OF DISCHARGE: 10/30/2024 Discharge Diagnosis\Comment: [id number] Hyperlipidemia Operations\Procedures: Cardiac catheterization Consultants: Pathology Laboratory Aides Teacher Complications: None Condition on DC: Stable New Medications: Aspirin (Aspirin EC) 81 Mg Tablet.dr 1 TAB PO DAILY for 30 Days, #30 TAB Losartan Potassium (Losartan Potassium) 50 Mg Tablet 50 MG PO BID for 30 Days, #60 TAB Metoprolol Succinate (Metoprolol Succinate) 25 Mg Tab.sr.24h 50 MG PO DAILY for 30 Days, #30 TAB.SR 0 Refills Rosuvastatin Calcium* (Crestor*) 40 Mg Tablet 1 TAB PO DAILY for 30 Days, #30 TAB 0 Refills Ticagrelor (Brilinta) 90 Mg Tablet 1 TAB PO Q12H for 30 Days, #60 TAB 4 Refills Discharge Summary: History of present illness: A 54-year-old male with past medical history of hyperlipidemia and lymphoma was transferred from [place] emergency department via paramedics in view of chest pain. Patient had chest pain, intermittent, since 10 days. The chest pain occurred at rest, nonradiating, with an intensity of 5/10 and lasted a few minutes. The chest pain became severe on 12th night around 11:00 p.m. which woke him up from his sleep. He rated the pain as continuous, 8/10, radiating to his left elbow, with no relieving factors. No complaints of palpitation, breathlessness, dizziness, syncope, sweating, leg swelling. Course in the hospital: The patient was treated with morphine and fentanyl in the ER for chest pain. EKG showed ST segment depression and T-wave inversions in V1 to V3 indicating non-STEMI. His troponin on arrival was 3755, WBC 11.9, NT proBNP 1644. Cardiology Dr. Quintana was involved He was taken to the molder labels in view of chest pain and elevated troponin. There was 100% [place] [address]. He was on the heparin and nitro drip. His blood pressure was controlled with metoprolol 50 mg, losartan 50 mg. Today the patient seems to be doing well, no complaints of chest pain. Systolic blood pressure in 120s. heparin and nitro drip was stopped. Troponin trending down to 8800. Vital Signs Date Time Temp Pulse Resp B/P (MAP) Pulse Ox O2 Delivery O2 Flow Rate FiO2 10/30/24 11:19 98.3 79 16 140/62 (88) 98 10/30/24 08:59 Room Air 0.0 Physical examination: General: Awake, not confused, not agitated, not in acute distress, following commands. Eye opening -spontaneous, verbal response-confused, motor response-obeys commands. GCS - 15/15 HEENT: Conjunctive are pink, sclerae clear, no icterus, pupil is equal in both sides, reactive to light, no ear discharge, no pharyngeal erythema or an edema. Neck: Supple, no JVD, no lymphadenopathy and thyromegaly. Chest: Equal air entry on both lungs, no additional sounds no rhonchi no wheezing at the moment. Cardiovascular: S1-S2 regular sinus rhythm and, regular rate, no gallops, no rubs, no murmurs Abdomen: No visible peristalsis, Bowel sounds present on auscultation, soft, nontender, no guarding, no rigidity Extremities: Normal, no swelling, no visible deformities. Peripheral pulses felt. Essential tremors in right hand. Central Nervous System: No motor or sensory deficits. No cranial nerve abnormalities. Musculoskeletal: No joint swelling, deformities, inflammations, and no scoliosis and back tenderness Skin: Warm and dry. Laboratory Tests Test 10/28/24 15:37 10/28/24 16:08 10/28/24 17:22 10/28/24 20:40 Troponin I High Sensitivity 5873 ng/L Troponin I High Sens Percent Delta 56 % Troponin I Hi Sens Absolute Change 2118 ng/L Activated Clotting Time 130 SEC 182 SEC APTT (Heparin Protocol) 55 SECONDS Coagulation Comments Test 10/28/24 22:31 10/29/24 03:38 10/29/24 11:40 10/29/24 18:46 Glucometer 143 mg/dl White Blood Count 12.2 X10'3 Red Blood Count 4.94 X10'6 Hemoglobin 15.9 g/dl Hematocrit 46.6 % Mean Corpuscular Volume 94.2 FL Mean Corpuscular Hemoglobin 32.2 PG Mean Corpuscular Hemoglobin Concent 34.1 g/dL Red Cell Distribution Width 14.2 % Platelet Count 173 X10'3 Mean Platelet Volume 8.0 FL Neutrophils (%) (Auto) 74.3 % Lymphocytes (%) (Auto) 18.0 % Monocytes (%) (Auto) 7.0 % Eosinophils (%) (Auto) 0.3 % Basophils (%) (Auto) 0.4 % Neutrophils # (Auto) 9.1 X10'3 Lymphocytes # (Auto) 2.2 X10'3 Monocytes # (Auto) 0.9 X10'3 Eosinophils # (Auto) 0.0 X10'3 Basophils # (Auto) 0.0 X10'3 CBC Comment APTT (Heparin Protocol) 30 SECONDS 37 SECONDS 51 SECONDS Coagulation Comments Sodium Level 136 MMOL/L Potassium Level 4.3 MMOL/L Chloride Level 102 MMOL/L Carbon Dioxide Level 21.9 MMOL/L Anion Gap 12 Blood Urea Nitrogen 8 MG/DL Creatinine 1.10 MG/DL Estimated GFR/1.73 m2 70 ML/MIN BUN/Creatinine Ratio 7.3 Glucose Level 136 MG/DL Calcium Level 9.5 MG/DL Magnesium Level 1.8 MG/DL Total Bilirubin 1.0 MG/DL Aspartate Amino Transf (AST/SGOT) 115 U/L Alanine Aminotransferase (ALT/SGPT) 56 U/L Alkaline Phosphatase 57 IU/L Troponin I High Sensitivity 12890 ng/L Troponin I High Sens Percent Delta 321 % Troponin I Hi Sens Absolute Change 15900 ng/L Total Protein 8.7 G/DL Albumin 4.0 G/DL Globulin 4.7 G/DL Albumin/Globulin Ratio 0.9 Triglycerides Level 146 MG/DL Cholesterol Level 224 MG/DL LDL Cholesterol 152 MG/DL HDL Cholesterol 47 MG/DL Cholesterol/HDL Ratio 4.8 Chemistry Comments Test 10/30/24 02:38 10/30/24 06:09 10/30/24 08:06 10/30/24 08:40 APTT (Heparin Protocol) 55 SECONDS 27 SECONDS 28 SECONDS Coagulation Comments White Blood Count 9.6 X10'3 Red Blood Count 4.97 X10'6 Hemoglobin 16.1 g/dl Hematocrit 47.1 % Mean Corpuscular Volume 94.7 FL Mean Corpuscular Hemoglobin 32.4 PG Mean Corpuscular Hemoglobin Concent 34.2 g/dL Red Cell Distribution Width 14.2 % Platelet Count 169 X10'3 Mean Platelet Volume 8.4 FL Neutrophils (%) (Auto) 64.9 % Lymphocytes (%) (Auto) 25.0 % Monocytes (%) (Auto) 7.7 % Eosinophils (%) (Auto) 2.0 % Basophils (%) (Auto) 0.4 % Neutrophils # (Auto) 6.2 X10'3 Lymphocytes # (Auto) 2.4 X10'3 Monocytes # (Auto) 0.7 X10'3 Eosinophils # (Auto) 0.2 X10'3 Basophils # (Auto) 0.0 X10'3 CBC Comment Sodium Level 138 MMOL/L Potassium Level 4.3 MMOL/L Chloride Level 101 MMOL/L Carbon Dioxide Level 25.1 MMOL/L Anion Gap 12 Blood Urea Nitrogen 11 MG/DL Creatinine 0.98 MG/DL Estimated GFR/1.73 m2 80 ML/MIN BUN/Creatinine Ratio 11.2 Glucose Level 102 MG/DL Calcium Level 9.0 MG/DL Magnesium Level 1.8 MG/DL Total Bilirubin 0.9 MG/DL Aspartate Amino Transf (AST/SGOT) 54 U/L Alanine Aminotransferase (ALT/SGPT) 49 U/L Alkaline Phosphatase 52 IU/L Total Protein 7.8 G/DL Albumin 3.7 G/DL Globulin 4.1 G/DL Albumin/Globulin Ratio 0.9 Chemistry Comments Troponin I High Sensitivity 8661 ng/L Troponin I High Sens Percent Delta 65 % Troponin I Hi Sens Absolute Change -34620 ng/L Imaging: Chest x-ray :No acute cardiopulmonary disease. ECHO: Left ventricle is mildly dilated with mild concentric hypertrophy. Overall systolic function is normal. LVEF is 65%. RV is normal size and function. The left atrium size is normal. Trileaflet AV appears mildly sclerotic without stenosis. Mild insufficiency. Mild mitral annular calcification without stenosis. Tracer regurgitation. The tricuspid valve is normal in structure with trace regurgitation. The pulmonary valve is normal in structure with physiologic insufficiency. The aortic root is normal in size. The ascending aorta is normal in size. IVC is dilated and collapses greater than 50% with inspiration. Normal pericardium. No effusion. Discharge course: Patient is being discharged in stable condition. PT cleared with the patient as home independent. Follow up with Cardiology in one month. Visit emergency in case of any acute symptoms including chest pain, palpitation, breathlessness, syncope, dizziness. *Problems/Diagnosis: (1) Hyperlipidemia Status: Chronic (2) Lymphoma in remission Status: Resolved (3) History of appendectomy Status: Resolved (4) NSTEMI (non-ST elevated myocardial infarction) Status: Acute Total Time Spent on D/C: > 30 Minutes Date of Service: Oct 30, 2024 Billing Provider: FARHEEN GONSALEZ MD Common Visit Codes: [id number]-[id number] DISCH DAY >30min Problem Qualifiers (1) Hyperlipidemia: Hyperlipidemia type: other hyperlipidemia Qualified Codes: E78.49 - Other hyperlipidemia SLOAN WHELAN, RES Oct 30, 2024 15:38 CHAITANYA MCNULTY, RES Oct 30, 2024 19:38 FARHEEN GONSALEZ MD Oct 31, 2024 06:55
[2024-10-30] MEDS ORDERED: ASPI81TA52 PO (16:02)
[2024-10-30] MEDS ORDERED: ROSU40TA PO (16:02)
[2024-10-30] MEDS ORDERED: TICA90TA2 PO (16:05)
[2024-10-30] MEDS ORDERED: LOSA50TA64 PO (19:52)
[2024-10-30] MEDS ORDERED: METO-395 PO (19:52)
--- NOTE | 2024-10-31 07:58 | CARDIOLOGY REPORT ---
DATE OF SERVICE: 10/28/2024 DICTATING PHYSICIAN: MYRIAM Quintana MD GENDER: Male. AGE: 54. HEIGHT: 190 cm. WEIGHT: 127.7 kg. BODY SURFACE AREA: 2.53 m2. INDICATION: The patient is a 54-year-old male with hyperlipidemia, hypertension, obstructive sleep apnea, and obesity, who came in with chest pain which has been going on for 1 week intermittently and got worse for a week and half and became severe last evening before admission around 11 p.m. The patient went to [facility] earlier and was found to have elevated troponin and severe hypertension. He was started on IV heparin, nitroglycerine, nitro drip, and heparin drip and was sent to the hospital in [facility]. His initial troponin was 3755, became 5873, and after discussing risks, benefits and alternative options, the patient has agreed to proceed with coronary angiography. Risks, benefits and alternative options were discussed and informed consent obtained. PROCEDURE TECHNIQUE: The patient underwent a left heart cath vial right radial approach, 6-[place] right radial sheath. Postprocedure access site closed with the right radial band. The patient tolerated the procedure well. PROCEDURES DONE: * Ultrasound-guided right radial artery visualization access. * Left heart catheterization. * Left ventriculography. * Coronary cineangiography. * PTCA stenting of the angioplasty of the diagonal ostium. * Angioplasty of the LAD followed by stenting of the LAD. * Conscious sedation time of 2 hours. PRIMARY PHYSICIAN: Harshal Peng at the [facility]. FINDINGS: HEMODYNAMICS: Aortic systolic 133, diastolic 80, mean 104 mmHg. LVEDP of 48 mmHg. There is no significant gradient across the aortic valve. Overall LVEF of about 50% with distal anteroapical distal inferior hypokinesia. CORONARY CINEANGIOGRAPHY: Left main coronary artery is a large caliber vessel arising up the aortic sinus with mild luminal irregularities. LAD is 100% occluded very proximally. Diagonal ostium shows 70% narrowing. Circumflex artery is a median caliber vessel, arising in at the bifurcation of main coronary artery and courses predominantly continuous principal obtuse marginal branch. There is about 30% narrowing in the circ OM junction. Right coronary artery is a large caliber dominant vessel arising at the aortic sinus and courses through the right the AV groove and ends at the the posterior crux by dividing into PDA and a posterolateral branch. There are faint collateral seems from RCA to LAD. Circumflex artery has areas of 30% narrowing. PTCA stenting of the LAD diagonal bifurcation: 6-[place] XB LAD #4 guide without side hole gave good support. LAD was successfully crossed and otherwise put in the diagonal branch. The lesion was angioplastied initially with 2.25 x 12 mm balloon at 8 atmospheric pressure followed by 12 atmospheric pressure. This reestablished the flow of the LAD diagonal branch. The distal end of the wire was found to be in diagonal II and it was repositioned in the distal LAD. Again, the same balloon was used to angioplasty the diagonal and ostium at 8 atmospheric pressure. Subsequently, LAD lesion was stented with 3/38 mm lesion starting across the diagonal 1 to the beginning of the diagonal 2. It was deployed at 12 atmospheric pressure followed by 14 atmospheric pressure. The stent was postdilated with 3.5 x 15 [place] balloon at 12 atmospheric pressure followed by 15 atmospheric pressure. Again, the diagonal ostium was re-crossed and again ostium was angioplastied with 2.25 x 12 new balloon at 8 atmospheric pressure followed 10 atmosphere pressure. Postprocedure, there is a good antegrade flow through both the LAD and diagonal branches. IMPRESSION: A 54-year-old male with LV ejection fraction of 50% with distal anteroapical distal inferior hypokinesia. LVEDP of 28 mmHg with no significant gradient across the aortic valve. Left main normal. Proximal LAD 100% occluded, successfully recanalized and angioplastied and stented with 3 x 38 mm Resolute [place] stent postdilated to 3.5 mm JONY III flow. Diagonal I ostium 70% successfully angioplastied with 2.25 mm with good antegrade flow. Second diagonal II is a 2.25 mm caliber with mild luminal irregularities. Circumflex and marginal junction with 30% narrowing. Dominant RCA with 30% narrowing. RECOMMENDATIONS: Continued aggressive risk factor modification, namely low-fat, low cholesterol diet. Maintaining ideal body weight. Keeping keeping LDL less than 70 mg, regular exercise program. MYRIAM Quintana MD TID: [id number] RECEIPT: [id number] BC/GAVIN/AMA cc: Dr. Oscar Mejias MD [facility]
== END 2024-10-30 16:43 | disposition home or self-care (01) | DRG 322 ==
LOC: ER 13:19 → ED HOLD 14:51 → PCU 3S 19:01
PROVIDERS: ADMIT Internal Medicine; ATTEND Internal Medicine
PROC: 0270346 Dilation of Coronary Artery, One Artery, Bifurcation, with Drug-eluting Intraluminal Device, Percutaneous Approach (ICD-10-PCS; principal; 2024-10-28)
PROC: 4A023N7 Measurement of Cardiac Sampling and Pressure, Left Heart, Percutaneous Approach (ICD-10-PCS; 2024-10-28)
PROC: B2111ZZ Fluoroscopy of Multiple Coronary Arteries using Low Osmolar Contrast (ICD-10-PCS; 2024-10-28)
PROC: B2151ZZ Fluoroscopy of Left Heart using Low Osmolar Contrast (ICD-10-PCS; 2024-10-28)
DX: I21.4 Non-ST elevation (NSTEMI) myocardial infarction (principal); I16.1 Hypertensive emergency; E78.5 Hyperlipidemia, unspecified; E66.9 Obesity, unspecified; G47.33 Obstructive sleep apnea (adult) (pediatric); Z68.35 Body mass index [BMI] 35.0-35.9, adult; I25.10 Atherosclerotic heart disease of native coronary artery without angina pectoris; D72.829 Elevated white blood cell count, unspecified; Z79.899 Other long term (current) drug therapy; Z87.891 Personal history of nicotine dependence
CPT/HCPCS: 92921; 93306; 93458; 96365; 99291; C9600; 36415; 71045; 76937; 80048; 80053; 80061; 82948; 83036; 83735; 83880; 84484; 85025; 85347; 85610; 85730; 87081; 93005; 97116; 97161; 99152; 99153; A4615; A6258; C1725; C1751; C1769; C1874; C1894; G0378; J0461; J1644; J2003; J2250; J2270; J2405; J3010; J3490; Q9967